=== PATIENT | male | born 1955 | race Caucasian/White ===

== ENCOUNTER 2018-03-01 20:58 | Inpatient (IN) | payer OTHER ==
[~2018-03-01] VITALS: Ht 185.4 cm; Wt 88.4 kg
[2018-03-01 21:32] LABS: BASOPHILS ABSOLUTE AUTO 0.05 K/mm3 (0.00-0.23); BASOPHILS PERCENT AUTO 1 % (0-2); EOSINOPHILS ABSOLUTE AUTO 0.28 K/mm3 (0.00-0.68); EOSINOPHILS PERCENT AUTO 4 % (0-6); Hematocrit 41.4 % (37.0-53.0); Hemoglobin 12.7 g/dL (13.5-17.5); IMMATURE GRAN ABSOLUTE AUTO 0.02 K/mm3 (0.00-0.10); IMMATURE GRAN PERCENT AUTO 0 % (0-1); LYMPHOCYTES ABSOLUTE AUTO 1.93 K/mm3 (0.84-5.20); LYMPHOCYTES PERCENT AUTO 29 % (21-46); MONOCYTES PERCENT AUTO 13 % (4-13); Mean Corpuscular HGB 30.5 pg (26.0-34.0); Mean Corpuscular HGB Conc 30.7 g/dL (31.5-36.5); Mean Corpuscular Volume 99 fL (80-100); Mean Platelet Volume 10.1 fL (9.1-12.4); NEUTROPHILS ABSOLUTE AUTO 3.54 K/mm3 (1.96-9.15); NEUTROPHILS PERCENT AUTO 53 % (41-73); Platelet Count 252 K/mm3 (150-400); RDW Standard Deviation 51.5 fL (35.1-46.3); Red Blood Cell Count 4.17 M/mm3 (4.30-5.90); White Blood Cell Count 6.72 K/mm3 (4.00-11.30)
[2018-03-01 21:53] LABS: Albumin, Blood 3.5 g/dL (3.4-5.0); Albumin/Globulin Ratio 0.9 (0.8-1.8); Bilirubin, Total 0.7 mg/dL (0.1-1.0); Bun/Creatinine Ratio 19.2 (12.0-20.0); Calcium, Blood 8.9 mg/dL (8.5-10.1); Creatinine, Blood 1.46 mg/dL (0.60-1.20); Globulin, Blood 3.8 g/dL (2.2-4.0); Potassium, Blood 4.1 mmol/L (3.5-5.5); Total Protein, Blood 7.3 g/dL (6.4-8.2); Troponin I 0.018 ng/mL (0.000-0.040)
[2018-03-01] MEDS ORDERED: METO50ER PO (21:54)
[2018-03-01] MEDS ORDERED: LOSA50 PO (21:55)
--- NOTE | 2018-03-02 02:00 | NUR ---
RECEIVED HAND OFF FROM MELVIN YODER IN ER USING SBAR. TRANSPORTED TO ROOM VIA STRETCHER. TRANSFERED SELF TO BED WITH STANDBY ASSIST, TOLERATED WELL. AAO X3, MEAD, FOLLOWS ALL COMMANDS. ORIENTED TO ROOM, CALL SYSTEM, AND POC, VOICES UNDERSTANDING. RESPIRATIONS EVEN AND UNLABORED ON ROOM AIR. LUNG SOUNDS DIMINSHED BILATERALLY. ABDOMEN SOFT AND NONDISTEDNED. BOWEL SOUNDS PRESENT IN ALL QUADS. COONTINENT OF BOWEL AND BLADDER, USES BATHROOM. STATES THAT [place] THAT HE TAKES CAUSES CONSTIPATION. RIGHT AC 18G IS PATENT, FLUSHING WITH EASE. STATES THAT HE IS STARVING. GIVEN SANDICHES, CHEESE, SODA, AND WATER. DENIES PAIN, DISCOMFORT, OR FURTHER NEEDS AT THIS TIME. ADMISSION ASSESSMENT IN PROGRESS. SAFETY MEASURES IN PLACE. WILL CONTINUE TO MONITOR.
--- NOTE | 2018-03-02 02:05 | NUR ---
PLACED ON TELE. SHOWING NSP WITH PAC'S, RATE OF 85. WILL CONTINUE TO MONITOR.
[2018-03-02 03:33] LABS: Source, Urine Clean Catch
[2018-03-02 03:35] LABS: Bilirubin, Urine Neg (Neg); Blood, Urine Neg (Neg); Glucose Qualitative, Urine Neg (Neg); Ketones, Urine Neg (Neg); Leukocyte Esterase, Urine 1+ (Neg); Nitrite, Urine Neg (Neg); Protein, Urine Neg (Neg); Urobilinogen, Urine NORM (Normal)
[2018-03-02 03:42] LABS: Appearance, Urine Clear (Clear); Color, Urine Pale Yellow (P-Yellow)
[2018-03-02 03:46] LABS: U Amphetamine Screen DETECTED; U Barbituate Screen Not Detected; U Benzodiazapine Screen Not Detected; U Buprenorphine Screen Not Detected; U Cannabinoids Screen DETECTED; U Cocaine Screen Not Detected; U Methadone Screen Not Detected; U Methamphetamine Screen DETECTED; U Opiates Screen Not Detected; U Oxycodone Screen Not Detected; U Phencyclidine Screen Not Detected; U Propoxyphene Screen Not Detected
[2018-03-02 03:47] LABS: Bacteria Not Seen /hpf; Red Blood Cells, Urine Not Seen /hpf (0-2); Squamous Epithelial Cells Few /hpf (Few); White Blood Cells, Urine Rare /hpf (0-5)
[2018-03-02 05:38] LABS: Hematocrit 41.5 % (37.0-53.0); Hemoglobin 13.3 g/dL (13.5-17.5); Mean Corpuscular HGB 30.4 pg (26.0-34.0); Mean Platelet Volume 10.6 fL (9.1-12.4); Platelet Count 257 K/mm3 (150-400); RDW Standard Deviation 48.6 fL (35.1-46.3); Red Blood Cell Count 4.37 M/mm3 (4.30-5.90); White Blood Cell Count 8.06 K/mm3 (4.00-11.30)
[2018-03-02 05:49] LABS: Mean Corpuscular Volume 95 fL (80-100)
[2018-03-02 06:09] LABS: CPK Creatine Kinase 133 U/L (39-308); Troponin I <0.015 ng/mL (0.000-0.040)
[2018-03-02 06:22] LABS: Albumin, Blood 3.5 g/dL (3.4-5.0); Albumin/Globulin Ratio 0.9 (0.8-1.8); Bilirubin, Total 1.1 mg/dL (0.1-1.0); Bun/Creatinine Ratio 20.3 (12.0-20.0); Calcium, Blood 9.1 mg/dL (8.5-10.1); Creatinine, Blood 1.43 mg/dL (0.60-1.20); Globulin, Blood 3.8 g/dL (2.2-4.0); Potassium, Blood 4.1 mmol/L (3.5-5.5); Total Protein, Blood 7.3 g/dL (6.4-8.2)
--- NOTE | 2018-03-02 07:23 | NUR ---
NO CHANGES SINCE ADMISSION. SAFETY MEASURES IN PLACE. HAND OFF GIVEN TO Shubham DUTTA RN USING SBAR.
--- NOTE | 2018-03-02 12:17 | NUR ---
PT HAVING STUDY IN ROOM.
[2018-03-02 13:36] LABS: CPK Creatine Kinase 104 U/L (39-308); Troponin I <0.015 ng/mL (0.000-0.040)
--- NOTE | 2018-03-02 18:12 | NUR ---
SHIFT SUMMARY PT EATING AND DRINKING. VOIDING. REPORTS UNDERSTANDING OF FLUID RESTRICTION. PT REPORTS "I FEEL MUCH BETTER TODAY THAN YESTERDAY". PT BEEN ASSISTED WITH ADL'S PRN. PT IND IN ROOM. REPORTS HAVING BM TODAY AND VOIDING EASIER TODAY "NOT IN BURSTS LAST TIME".
[2018-03-03 05:35] LABS: BASOPHILS ABSOLUTE AUTO 0.04 K/mm3 (0.00-0.23); BASOPHILS PERCENT AUTO 0 % (0-2); EOSINOPHILS PERCENT AUTO 3 % (0-6); Hematocrit 43.3 % (37.0-53.0); Hemoglobin 13.9 g/dL (13.5-17.5); IMMATURE GRAN ABSOLUTE AUTO 0.03 K/mm3 (0.00-0.10); IMMATURE GRAN PERCENT AUTO 0 % (0-1); LYMPHOCYTES PERCENT AUTO 17 % (21-46); MONOCYTES ABSOLUTE AUTO 1.17 K/mm3 (0.16-1.47); MONOCYTES PERCENT AUTO 11 % (4-13); Mean Corpuscular HGB 30.3 pg (26.0-34.0); Mean Corpuscular HGB Conc 32.1 g/dL (31.5-36.5); Mean Corpuscular Volume 95 fL (80-100); Mean Platelet Volume 10.2 fL (9.1-12.4); NEUTROPHILS ABSOLUTE AUTO 7.69 K/mm3 (1.96-9.15); NEUTROPHILS PERCENT AUTO 69 % (41-73); Platelet Count 255 K/mm3 (150-400); RDW Coefficient Variation 14.1 % (11.7-14.2); RDW Standard Deviation 48.8 fL (35.1-46.3); Red Blood Cell Count 4.58 M/mm3 (4.30-5.90); White Blood Cell Count 11.13 K/mm3 (4.00-11.30)
[2018-03-03 05:53] LABS: Anion Gap 11 mmol/L (6-16); Blood Urea Nitrogen 23 mg/dL (8-24); Bun/Creatinine Ratio 19.3 (12.0-20.0); CO2, Blood 22 mmol/L (21-32); Chloride, Blood 104 mmol/L (98-108); Creatinine, Blood 1.19 mg/dL (0.60-1.20); Glomerular Filtration Rate >60 (60-); Glucose, Blood 151 mg/dL (70-99); Magnesium, Blood 1.6 mg/dL (1.6-2.4); Potassium, Blood 3.8 mmol/L (3.5-5.5); Sodium, Blood 137 mmol/L (136-145)
--- NOTE | 2018-03-03 14:00 | NUR ---
PT MOST RECENT/PREVIOUS EKG AND ECHO WERE REQUESTED FROM [facility], .
--- NOTE | 2018-03-03 16:17 | NUR ---
REQUESTED PATIENT PERMISSION FOR CARE ON 03/03/18 FOR CLINICAL DAY 03/04/18 1400 HOURS, PATIENT GAVE PERMISSION TO ASSIST WITH CARE.
--- NOTE | 2018-03-03 17:03 | NUR ---
SHIFT SUMMARY PT A&OX4, VSS, TELE SR PACS @84. AMB INDEPENDENT IN ROOM. VOIDING WELL. NATALI PO, DENIES N&V. DENIES PAIN, CP, SOB. VERBALIZES UNDERSTANDING OF FLUID RESTRICTION. WILL CTM & TX PER EMAR UNTIL REPORT GIVEN TO ONCOMING NOC RN.
--- NOTE | 2018-03-03 18:44 | NUR ---
PREVIOUS ECHO FROM [facility] IS ON PHYSICAL CHART. EKG HAS BEEN REQUESTED, STILL AWAITING IT TO BE FAXED TO US.
--- NOTE | 2018-03-03 18:46 | NUR ---
TELEPHONE CALL TO HOSPITALIST : PREVIOUS ECHO ON PHYSICAL CHART.
[2018-03-04 05:51] LABS: Anion Gap 9 mmol/L (6-16); Blood Urea Nitrogen 23 mg/dL (8-24); Bun/Creatinine Ratio 18.5 (12.0-20.0); CO2, Blood 25 mmol/L (21-32); Calcium, Blood 8.8 mg/dL (8.5-10.1); Chloride, Blood 104 mmol/L (98-108); Creatinine, Blood 1.24 mg/dL (0.60-1.20); Glomerular Filtration Rate >60 (60-); Glucose, Blood 164 mg/dL (70-99); Potassium, Blood 3.8 mmol/L (3.5-5.5); Sodium, Blood 138 mmol/L (136-145)
--- NOTE | 2018-03-04 08:41 | NUR ---
SHIFT SUMMARY PT A&O X4 T/O SHIFT. PT INDEPENDENT IN ROOM. LS CLEAR BILAT, RA, DENIES SOB. NO EDEMA NOTED; FLUID RESTRICTION PER ORDERS. TELEMETRY IN PLACE; SR WITH PAC'S PER FOUNTAIN JERK. PERMISSION TO REMOVE TELE WHILE SHOWERING FROM DR. MARTINEZ VIA PHONE APPROX. [id number]. PT SHOWERED. CALL LIGHT IN REACH. REPORT GIVEN TO DAY SHIFT RN.
--- NOTE | 2018-03-04 10:38 | NUR ---
ECHO RESULTS REQUESTED FROM PT'S LAST VISIT TO [facility] VIA FAX.
[2018-03-05 05:43] LABS: International Normalized Ratio 1.11; Prothrombin Time Results 11.4 Sec (9.7-11.5)
[2018-03-05 05:53] LABS: Bun/Creatinine Ratio 18.8 (12.0-20.0); Creatinine, Blood 1.38 mg/dL (0.60-1.20); Potassium, Blood 4.1 mmol/L (3.5-5.5)
--- NOTE | 2018-03-05 07:07 | NUR ---
SUMMARY: ADMIT DAY 3 SOB ON HOSPITALIST SERVICE WITH CARDIOLOGY CONSULT. VSS, AFEBRILE, SHOWERED AND MAINTAINED NPO STATUS AFTER MIDNIGHT IN ANTICIPATION OF ANGIOGRAM LATER THIS DAY.
--- NOTE | 2018-03-05 12:13 | NUR ---
PT EDUCATED THAT ANGIO WAS POSTPONED UNTIL AROUND 3PM. WILL CONTINUE TO MONITOR.
--- NOTE | 2018-03-05 14:51 | NUR ---
PT TO THE HEART [facility]ENTER FOR ANGIOGRAM.
--- NOTE | 2018-03-05 16:55 | NUR ---
Telephone report from Olena Hobson RN at this time. The pt arrived from the heart center at 1630. Right radial site is without bleeding, swelling, hematoma, ecchymosis, and the TR band is in place. Fingers of the right hand are pink and warm. Cap refill is 3 seconds. Pt denies any pain or discomfort in the right arm. White immobilizer board is in place, and the pt was instructed not to use the right arm to minimize risk of bleeding.
--- NOTE | 2018-03-05 16:59 | NUR ---
REPORT CALLED TO PATTI IN PCU.
--- NOTE | 2018-03-05 19:17 | NUR ---
1800 Slowly deflated TR band by 2 cc, then after several minutes, deflated again another 2 cc. Had bleeding externally, so 2 cc reinflated, but still oozing so another 22 inflated.
--- NOTE | 2018-03-05 19:18 | NUR ---
1845 AFter 30 minutes following bleeding and reinflation of the TR band, 2 cc of air were removed from the TR band, without any bleeding or swelling or bruising noted. The pt states relief from some tingling of the arm which he was starting to have. No other complaints of pain or discomfort.
--- NOTE | 2018-03-06 03:47 | NUR ---
PHONE INCEDENT APPROX 0340 OUTSIDE CALLER IDENTIFIED HIMSELF PATIENTS BROTHER AND WANTED INFORMATION. CALLER WAS INFORMED THAT SIGNED CONSENT TO GIVE OUT INFORMATION WAS NOT COMPLETED AND STAFF COULD NOT GIVE OUT PATIENT INFORMATION, CALLER ALSO NOTIFIED THAT STAFF COULD ASK PATIENT FOR PERMISSION OR TRANSFER CALL TO ROOM. CALLER BEGAN TO RAISE HIS VOICE AND STATE THAT STAFF WAS USELESS AND THAT PATIENTS CHILDREN HAD A RIGHT TO KNOW PATIENTS CONDITION. THIS NURSE APOLOGISED SEVERAL TIMES FOR INCONVENIENCE AND EXPLAINED SEVERAL TIMES THAT IT WAS AGAINST THE LAW FOR STAFF TO GIVE OUT PATIENT INFORMATION WITHOUT PATIENT CONSENT (WHICH WAS NOT IN WRITTING). CALLER AGAIN INFORMED THAT STAFF COULD ASK FOR PERMISSION FROM PATIENT AND CALLER REQUESTED TO TALK DIRECTLY TO HIS BROTHER (VERY LOUDLY). STAFF ASKED PATIENT IF HE WANTED TO TALK TO HIS BROTHER AND PATIENT STATED, "NO I DONT, IM TOO TIRED BUT YOU CAN TELL HIM ANYTHING HE WANTS TO KNOW". CALLER NOTIFIED THAT PATIENT WANTED TO SLEEP RATHER THAN TALK ON THE PHONE BUT PATIENT HAD GIVEN PERMISSION TO ANSWER BROTHERS QUESTIONS/GIVE INFORMATION . CALLER BEGAN TO YELL AT STAFF OVER THE PHONE AGAIN EVEN THOUGH HE WAS NOTIFIED THAT WE HAD PERMISSION TO ANSWER ALL OF HIS QUESTIONS. CALLER YELLING AT NURSE SAYING THAT HE HAD BEEN 'RECIEVING INFORMATION FOR 4 DAYS', 'WHATS YOUR PROBLEM'. CALL ENDED
--- NOTE | 2018-03-06 04:10 | NUR ---
SHIFT SUMMARY: PATIENT TR BAND FULLY RECOVERED: NO BLEEDING, HEMATOMA, SENSATION LOSS, LOSS OF STRENGTH NOTED. GOOD CAPILLARY REFILL, WRIST STABILIZER IN PLACE, VSS, CALL LIGHT WITHIN REACH, BED LOW AND LOCKED.
[2018-03-06 04:14] LABS: Albumin, Blood 3.2 g/dL (3.4-5.0); Anion Gap 6 mmol/L (6-16); Blood Urea Nitrogen 23 mg/dL (8-24); Bun/Creatinine Ratio 19.7 (12.0-20.0); CO2, Blood 24 mmol/L (21-32); Calcium, Blood 8.3 mg/dL (8.5-10.1); Chloride, Blood 107 mmol/L (98-108); Creatinine, Blood 1.17 mg/dL (0.60-1.20); Glomerular Filtration Rate >60 (60-); Glucose, Blood 140 mg/dL (70-99); Magnesium, Blood 1.8 mg/dL (1.6-2.4); Phosphorus, Blood 3.4 mg/dL (2.5-4.9); Potassium, Blood 4.2 mmol/L (3.5-5.5); Sodium, Blood 137 mmol/L (136-145)
--- NOTE | 2018-03-06 08:15 | NUR ---
INITIAL ASSESSMENT: Pt resting in bed. LS clear. BT positive. Pulses palp. HR reg. Pt denies chest pain or SOB. States that he is feeling good and would like to go home. VSS. R wrist with imobilzier in place. Radial access site to R wrist with no bleeding, swelling, hematoma or oozing at site. Pt Denies pain. Call light in reach. Will monitor.
[2018-03-06] MEDS ORDERED: SPIR25 PO (11:05)
[2018-03-06] MEDS ORDERED: TORSE20 PO (11:06)
--- NOTE | 2018-03-06 11:45 | NUR ---
Discharge: Pt was given printend and written discharge instructions. Verbalzied understanding, denies questions. RX called to [facility]. IV discontinued, cath intact. Pt states he will eat dinner then wait for his brother to pick him up. will monitor.
--- NOTE | 2018-03-06 12:30 | NUR ---
Pt ambulated out with his brother. Stable at time of discharge.
== END 2018-03-06 12:29 | disposition home or self-care (01) | DRG 286 ==
LOC: ER 20:58 → SURS 03-02 00:19 → PCU 03-05 16:25
PROVIDERS: Emergency Medicine; Internal Medicine; Internal Medicine Cardiovascular Disease; ADMIT Internal Medicine
PROC: 3E02340 Introduction of Influenza Vaccine into Muscle, Percutaneous Approach (ICD-10-PCS; 2018-03-02)
PROC: B2111ZZ Fluoroscopy of Multiple Coronary Arteries using Low Osmolar Contrast (ICD-10-PCS; principal; 2018-03-05)
PROC: 4A023N7 Measurement of Cardiac Sampling and Pressure, Left Heart, Percutaneous Approach (ICD-10-PCS; 2018-03-05)
DX: I13.0 Hypertensive heart and chronic kidney disease with heart failure and stage 1 through stage 4 chronic kidney disease, or unspecified chronic kidney disease (principal); I50.23 Acute on chronic systolic (congestive) heart failure; N17.9 Acute kidney failure, unspecified; I47.2 Ventricular tachycardia; I42.7 Cardiomyopathy due to drug and external agent; E11.22 Type 2 diabetes mellitus with diabetic chronic kidney disease; I27.20 Pulmonary hypertension, unspecified; Z23 Encounter for immunization; E83.42 Hypomagnesemia; I36.1 Nonrheumatic tricuspid (valve) insufficiency; N18.3 Chronic kidney disease, stage 3 (moderate); T43.625A Adverse effect of amphetamines, initial encounter; I25.10 Atherosclerotic heart disease of native coronary artery without angina pectoris; I25.5 Ischemic cardiomyopathy; F15.10 Other stimulant abuse, uncomplicated; I34.0 Nonrheumatic mitral (valve) insufficiency; E78.5 Hyperlipidemia, unspecified; I25.2 Old myocardial infarction; Z79.899 Other long term (current) drug therapy; Z79.82 Long term (current) use of aspirin
CPT/HCPCS: 36415; 71045; 80048; 80053; 80069; 81001; 82550; 83690; 83735; 83880; 84484; 85025; 85027; 85379; 85610; 86850; 86900; 86901; 87086; 90686; 93005; 93010; 93306; 93458; 96374; 99152; 99153; 99285-25; C1769; C1894; J0690; J1644; J1650; J1940; J2250; J3010; J3475; J7030; Q9967

== ENCOUNTER 2018-07-21 09:36 | Emergency (ER) | payer OTHER ==
[~2018-07-21] VITALS: Ht 185.4 cm; Wt 87.5 kg
[~2018-07-21 09:36] MED LIST: LOSA50 PO; METO50ER PO; SPIR25 PO; TORSE20 PO
[2018-07-21 10:24] LABS: BASOPHILS ABSOLUTE AUTO 0.03 K/mm3 (0.00-0.23); BASOPHILS PERCENT AUTO 0 % (0-2); EOSINOPHILS PERCENT AUTO 4 % (0-6); Hematocrit 35.3 % (37.0-53.0); Hemoglobin 11.1 g/dL (13.5-17.5); IMMATURE GRAN ABSOLUTE AUTO 0.04 K/mm3 (0.00-0.10); IMMATURE GRAN PERCENT AUTO 1 % (0-1); LYMPHOCYTES ABSOLUTE AUTO 1.52 K/mm3 (0.84-5.20); LYMPHOCYTES PERCENT AUTO 19 % (21-46); MONOCYTES ABSOLUTE AUTO 0.85 K/mm3 (0.16-1.47); MONOCYTES PERCENT AUTO 11 % (4-13); Mean Corpuscular HGB Conc 31.4 g/dL (31.5-36.5); Mean Corpuscular Volume 102 fL (80-100); Mean Platelet Volume 10.2 fL (9.1-12.4); NEUTROPHILS ABSOLUTE AUTO 5.33 K/mm3 (1.96-9.15); NEUTROPHILS PERCENT AUTO 66 % (41-73); Platelet Count 224 K/mm3 (150-400); RDW Coefficient Variation 14.5 % (11.7-14.2); RDW Standard Deviation 53.9 fL (35.1-46.3); Red Blood Cell Count 3.47 M/mm3 (4.30-5.90); White Blood Cell Count 8.07 K/mm3 (4.00-11.30)
[2018-07-21 10:37] LABS: Alanine Aminotransfer (ALT/SGP 103 U/L (12-78); Albumin, Blood 3.5 g/dL (3.4-5.0); Alk Phos 104 U/L (50-136); Anion Gap 4 mmol/L (6-16); Aspartate Aminotrans (AST/SGOT 43 U/L (12-37); Bilirubin, Total 0.9 mg/dL (0.1-1.0); Blood Urea Nitrogen 19 mg/dL (8-24); Bun/Creatinine Ratio 15.4 (12.0-20.0); CO2, Blood 24 mmol/L (21-32); Calcium, Blood 8.8 mg/dL (8.5-10.1); Chloride, Blood 111 mmol/L (98-108); Creatinine, Blood 1.23 mg/dL (0.60-1.20); Globulin, Blood 3.4 g/dL (2.2-4.0); Glomerular Filtration Rate >60 (60-); Glucose, Blood 168 mg/dL (70-99); Potassium, Blood 4.2 mmol/L (3.5-5.5); Sodium, Blood 139 mmol/L (136-145); Total Protein, Blood 6.9 g/dL (6.4-8.2); Troponin I 0.037 ng/mL (0.000-0.040)
[2018-07-21 10:52] LABS: Source, Urine Clean Catch
[2018-07-21 10:58] LABS: Bilirubin, Urine Neg (Neg); Blood, Urine Neg (Neg); Glucose Qualitative, Urine Neg (Neg); Ketones, Urine Neg (Neg); Leukocyte Esterase, Urine Neg (Neg); Nitrite, Urine Neg (Neg); Protein, Urine 1+ (Neg); Specific Gravity, Urine 1.015 (1.003-1.022); Urobilinogen, Urine NORM (Normal)
[2018-07-21 11:00] LABS: Appearance, Urine Clear (Clear); Color, Urine Yellow (P-Yellow)
== END 2018-07-21 14:45 | disposition home or self-care (01) ==
LOC: ER 09:36
PROVIDERS: Emergency Medicine
DX: I11.0 Hypertensive heart disease with heart failure (principal); I50.82 Biventricular heart failure; I50.21 Acute systolic (congestive) heart failure; I25.2 Old myocardial infarction; I25.10 Atherosclerotic heart disease of native coronary artery without angina pectoris; Z87.891 Personal history of nicotine dependence; Z79.899 Other long term (current) drug therapy
CPT/HCPCS: 36415; 71046; 80053; 83690; 83880; 84484; 85025; 93005; 93010; 96374; 99285-25; J1940

== ENCOUNTER 2018-10-09 22:33 | Observation (INO) | payer OTHER ==
[~2018-10-09] VITALS: Ht 188 cm; Wt 89.2 kg
[2018-10-09 23:18] LABS: BASOPHILS ABSOLUTE AUTO 0.03 K/mm3 (0.00-0.23); BASOPHILS PERCENT AUTO 0 % (0-2); EOSINOPHILS ABSOLUTE AUTO 0.37 K/mm3 (0.00-0.68); EOSINOPHILS PERCENT AUTO 4 % (0-6); Hematocrit 37.2 % (37.0-53.0); Hemoglobin 11.9 g/dL (13.5-17.5); IMMATURE GRAN ABSOLUTE AUTO 0.03 K/mm3 (0.00-0.10); IMMATURE GRAN PERCENT AUTO 0 % (0-1); LYMPHOCYTES PERCENT AUTO 17 % (21-46); MONOCYTES ABSOLUTE AUTO 0.97 K/mm3 (0.16-1.47); MONOCYTES PERCENT AUTO 9 % (4-13); Mean Corpuscular HGB 31.2 pg (26.0-34.0); Mean Corpuscular Volume 97 fL (80-100); NEUTROPHILS PERCENT AUTO 70 % (41-73); Platelet Count 228 K/mm3 (150-400); RDW Coefficient Variation 14.6 % (11.7-14.2); RDW Standard Deviation 52.4 fL (35.1-46.3); Red Blood Cell Count 3.82 M/mm3 (4.30-5.90)
[2018-10-09 23:44] LABS: Alanine Aminotransfer (ALT/SGP 133 U/L (12-78); Albumin, Blood 3.4 g/dL (3.4-5.0); Alk Phos 113 U/L (50-136); Anion Gap 7 mmol/L (6-16); Aspartate Aminotrans (AST/SGOT 69 U/L (12-37); Bilirubin, Total 1.5 mg/dL (0.1-1.0); Blood Urea Nitrogen 20 mg/dL (8-24); Bun/Creatinine Ratio 16.1 (12.0-20.0); CO2, Blood 22 mmol/L (21-32); Calcium, Blood 8.8 mg/dL (8.5-10.1); Chloride, Blood 112 mmol/L (98-108); Creatinine, Blood 1.24 mg/dL (0.60-1.20); Globulin, Blood 3.5 g/dL (2.2-4.0); Glomerular Filtration Rate >60 (60-); Glucose, Blood 149 mg/dL (70-99); Potassium, Blood 4.1 mmol/L (3.5-5.5); Sodium, Blood 141 mmol/L (136-145); Total Protein, Blood 6.9 g/dL (6.4-8.2); Troponin I 0.016 ng/mL (0.000-0.040)
--- NOTE | 2018-10-10 05:40 | NUR ---
SHIFT SUMMARY: YAMILEX ARRIVED TO THE UNIT VIA GURNEY. TRANSFERRED SELF TO THE BED WITH NO PROBLEMS. YAMILEX CAME TO THE ER TODAY DUE TO CHEST PAIN, SOB. HAS HISTORY OF CHF AND HAS NOT TAKEN HIS MEDS FOR 2 WEEKS, SOMETHING TO DO WITH THE PHARMACY NOT FILLING THEM. HE IS AOX4, PLEASANT AND COOPERATIVE. SETTLED HIM INTO THE ROOM AND COMPLETED ADMISSION. LOVONOX WAS GIVEN AND SCIENTIST PLACED TELEMETRY. HE DENIED ANY CHEST PAIN AT THIS TIME, NO SOB,. STILL URINATING OFF AND ON DUE TO BUMEX GIVEN IN ER. DENIED ANY OTHER CONCERNS OR PROBLEMS. RESTED THE REST OF THE NIGHT. NO ACUTE CHANGES HAPPENED THIS SHIFT. WILL REPORT TO DAY SHIFT RN.
[2018-10-10 07:16] LABS: Hematocrit 38.7 % (37.0-53.0); Hemoglobin 12.7 g/dL (13.5-17.5); Mean Corpuscular HGB 30.5 pg (26.0-34.0); Mean Corpuscular HGB Conc 32.8 g/dL (31.5-36.5); Mean Platelet Volume 9.9 fL (9.1-12.4); Platelet Count 258 K/mm3 (150-400); RDW Coefficient Variation 14.5 % (11.7-14.2); RDW Standard Deviation 49.1 fL (35.1-46.3); Red Blood Cell Count 4.17 M/mm3 (4.30-5.90); White Blood Cell Count 9.08 K/mm3 (4.00-11.30)
[2018-10-10 07:20] LABS: Mean Corpuscular Volume 93 fL (80-100)
[2018-10-10 07:41] LABS: Alanine Aminotransfer (ALT/SGP 143 U/L (12-78); Albumin, Blood 3.6 g/dL (3.4-5.0); Alk Phos 120 U/L (50-136); Anion Gap 6 mmol/L (6-16); Aspartate Aminotrans (AST/SGOT 72 U/L (12-37); Blood Urea Nitrogen 20 mg/dL (8-24); Bun/Creatinine Ratio 16.9 (12.0-20.0); CO2, Blood 24 mmol/L (21-32); Calcium, Blood 9.2 mg/dL (8.5-10.1); Chloride, Blood 108 mmol/L (98-108); Creatinine, Blood 1.18 mg/dL (0.60-1.20); Globulin, Blood 3.6 g/dL (2.2-4.0); Glomerular Filtration Rate >60 (60-); Glucose, Blood 139 mg/dL (70-99); Potassium, Blood 3.7 mmol/L (3.5-5.5); Sodium, Blood 138 mmol/L (136-145); Total Protein, Blood 7.2 g/dL (6.4-8.2)
[2018-10-10 07:43] LABS: CPK Creatine Kinase 83 U/L (39-308); Troponin I <0.015 ng/mL (0.000-0.040)
--- NOTE | 2018-10-10 11:38 | NUR ---
PATIENT DISCHARGED WITH BROTHER. FOLLOW UP WITH PCP TO BE ESTABLISHED BY DISCHARGE PLANNERS. DISCHARGE PLANNING TO CALL PATIENT FOR FOLLOW UP TIME. NOTIFIED DISCHARGE PLANNING TO CALL HIS BROTHER WITH THE APPOINTMENT TIME.
== END 2018-10-10 11:35 | disposition home or self-care (01) ==
LOC: ER 22:33 → MEDS 22:34 → ENPENDDIS 10-10 10:00 → MEDS 10-10 11:35
PROVIDERS: Emergency Medicine; ADMIT Internal Medicine
DX: I11.0 Hypertensive heart disease with heart failure (principal); I50.43 Acute on chronic combined systolic (congestive) and diastolic (congestive) heart failure; I25.2 Old myocardial infarction; R74.0 Nonspecific elevation of levels of transaminase and lactic acid dehydrogenase [LDH]; E11.9 Type 2 diabetes mellitus without complications; I34.1 Nonrheumatic mitral (valve) prolapse; Z91.14 Patient's other noncompliance with medication regimen; Z79.899 Other long term (current) drug therapy; Z88.8 Allergy status to other drugs, medicaments and biological substances
CPT/HCPCS: 36415; 71046; 80053; 82550; 83880; 84484; 85025; 85027; 93005; 93010; 96372; 96374; 96376; 99285-25; G0378; J1650

== ENCOUNTER 2019-12-12 05:41 | Emergency (ER) | payer MEDICARE ==
[~2019-12-12] VITALS: Ht 188 cm; Wt 90.7 kg
[2019-12-12 06:21] LABS: BASOPHILS ABSOLUTE AUTO 0.03 K/mm3 (0.00-0.23); BASOPHILS PERCENT AUTO 0 % (0-2); EOSINOPHILS ABSOLUTE AUTO 0.05 K/mm3 (0.00-0.68); EOSINOPHILS PERCENT AUTO 1 % (0-6); Hematocrit 46.7 % (37.0-53.0); Hemoglobin 16.6 g/dL (13.5-17.5); IMMATURE GRAN ABSOLUTE AUTO 0.02 K/mm3 (0.00-0.10); IMMATURE GRAN PERCENT AUTO 0 % (0-1); LYMPHOCYTES PERCENT AUTO 22 % (21-46); MONOCYTES ABSOLUTE AUTO 0.56 K/mm3 (0.16-1.47); MONOCYTES PERCENT AUTO 7 % (4-13); Mean Corpuscular HGB 32.2 pg (26.0-34.0); Mean Corpuscular HGB Conc 35.5 g/dL (31.5-36.5); Mean Corpuscular Volume 91 fL (80-100); Mean Platelet Volume 9.3 fL (9.1-12.4); NEUTROPHILS ABSOLUTE AUTO 5.37 K/mm3 (1.96-9.15); NEUTROPHILS PERCENT AUTO 70 % (41-73); Platelet Count 322 K/mm3 (150-400); RDW Coefficient Variation 12.4 % (11.7-14.2); RDW Standard Deviation 41.1 fL (35.1-46.3); Red Blood Cell Count 5.16 M/mm3 (4.30-5.90); White Blood Cell Count 7.73 K/mm3 (4.00-11.30)
[2019-12-12 06:30] LABS: Alanine Aminotransfer (ALT/SGP 32 U/L (12-78); Albumin, Blood 4.3 g/dL (3.4-5.0); Albumin/Globulin Ratio 1.1 (0.8-1.8); Anion Gap 11 mmol/L (6-16); Aspartate Aminotrans (AST/SGOT 26 U/L (12-37); Bilirubin, Total 0.6 mg/dL (0.1-1.0); Blood Urea Nitrogen 31 mg/dL (8-24); Bun/Creatinine Ratio 26.3 (12.0-20.0); CO2, Blood 21 mmol/L (21-32); Calcium, Blood 8.9 mg/dL (8.5-10.1); Chloride, Blood 99 mmol/L (98-108); Creatinine, Blood 1.18 mg/dL (0.60-1.20); Ethanol (Alcohol), Blood, Med 96 mg/dL; Globulin, Blood 3.8 g/dL (2.2-4.0); Glomerular Filtration Rate >60 (60-); Glucose, Blood 142 mg/dL (70-99); Potassium, Blood 3.8 mmol/L (3.5-5.5); Sodium, Blood 131 mmol/L (136-145); Total Protein, Blood 8.1 g/dL (6.4-8.2)
[2019-12-12 06:33] LABS: Alk Phos 82 U/L (50-136); Troponin I <0.015 ng/mL (0.000-0.040)
[2019-12-12 07:26] LABS: U Cannabinoids Screen DETECTED
[2019-12-12 07:27] LABS: U Amphetamine Screen Not Detected; U Barbituate Screen Not Detected; U Benzodiazapine Screen Not Detected; U Buprenorphine Screen Not Detected; U Cocaine Screen Not Detected; U Methadone Screen Not Detected; U Methamphetamine Screen Not Detected; U Opiates Screen Not Detected; U Oxycodone Screen Not Detected; U Phencyclidine Screen Not Detected; U Propoxyphene Screen Not Detected
[2019-12-12] MEDS ORDERED: PEPCID40 MG PO (09:34)
[2019-12-12] MEDS ORDERED: ONDA4ODT SL (09:34)
== END 2019-12-12 10:29 | disposition home or self-care (01) ==
LOC: ER 05:41
PROVIDERS: Emergency Medicine
DX: R10.13 Epigastric pain (principal); I42.9 Cardiomyopathy, unspecified; R11.2 Nausea with vomiting, unspecified; I25.2 Old myocardial infarction; I11.0 Hypertensive heart disease with heart failure; I50.42 Chronic combined systolic (congestive) and diastolic (congestive) heart failure; Z88.8 Allergy status to other drugs, medicaments and biological substances; Z79.899 Other long term (current) drug therapy
CPT/HCPCS: 36415; 71045; 80053; 83690; 83880; 84484; 85025; 93005; 93010; 96374; 96375; 99285-25; C9113; G0480; J1170; J2060; J2405

== ENCOUNTER 2023-09-22 15:00 | Emergency (ER) | payer MEDICARE ==
[~2023-09-22] VITALS: Ht 185.4 cm; Wt 90.7 kg
[~2023-09-22 15:00] MED LIST changes: +ONDA4ODT SL; +PEPCID40 MG PO
[2023-09-22 15:20] LABS: BASOPHILS ABSOLUTE AUTO 0.04 K/mm3 (0.00-0.23); BASOPHILS PERCENT AUTO 1 % (0-2); EOSINOPHILS ABSOLUTE AUTO 0.05 K/mm3 (0.00-0.68); EOSINOPHILS PERCENT AUTO 1 % (0-6); Hematocrit 42.8 % (37.0-53.0); Hemoglobin 15.1 g/dL (13.5-17.5); IMMATURE GRAN ABSOLUTE AUTO 0.03 K/mm3 (0.00-0.10); IMMATURE GRAN PERCENT AUTO 0 % (0-1); LYMPHOCYTES ABSOLUTE AUTO 2.91 K/mm3 (0.84-5.20); LYMPHOCYTES PERCENT AUTO 34 % (21-46); MONOCYTES ABSOLUTE AUTO 0.94 K/mm3 (0.16-1.47); MONOCYTES PERCENT AUTO 11 % (4-13); Mean Corpuscular HGB 33.8 pg (26.0-34.0); Mean Corpuscular HGB Conc 35.3 g/dL (31.5-36.5); Mean Corpuscular Volume 96 fL (80-100); Mean Platelet Volume 9.7 fL (9.1-12.4); NEUTROPHILS ABSOLUTE AUTO 4.62 K/mm3 (1.96-9.15); NEUTROPHILS PERCENT AUTO 54 % (41-73); Platelet Count 248 K/mm3 (150-400); RDW Coefficient Variation 12.5 % (11.7-14.2); RDW Standard Deviation 43.6 fL (35.1-46.3); Red Blood Cell Count 4.47 M/mm3 (4.30-5.90); White Blood Cell Count 8.59 K/mm3 (4.00-11.30)
[2023-09-22 15:57] LABS: Magnesium, Blood 1.9 mg/dL (1.6-2.4)
[2023-09-22 16:01] LABS: Albumin, Blood 3.3 g/dL (3.4-5.0); Albumin/Globulin Ratio 0.9 (0.8-1.8); Bilirubin, Total 0.6 mg/dL (0.1-1.0); Bun/Creatinine Ratio 7.3 (12.0-20.0); Calcium, Blood 8.5 mg/dL (8.5-10.1); Creatinine, Blood 1.37 mg/dL (0.60-1.20); Globulin, Blood 3.7 g/dL (2.2-4.0); Potassium, Blood 3.5 mmol/L (3.5-5.5); Thyroid Stimulating Hormone 6.9 uIU/mL (0.360-4.800)
[2023-09-22] MEDS ORDERED: NS 1,000 ML IV SCH (17:15)
[2023-09-22 17:44] LABS: pH Blood Venous 7.38 (7.34-7.37)
[2023-09-22 17:45] LABS: Base Excess Venous 1.8 mmol/L; Bicarbonate Venous 24.1 mmol/L (24.0-30.0); PCO2 Venous 45.7 mmHg (38-42)
[2023-09-22] MEDS ORDERED: METF500 PO (19:29)
[2023-09-22 19:45] VITALS: BP 140/91
== END 2023-09-22 20:06 | disposition home or self-care (01) ==
LOC: ER 15:00
PROVIDERS: Student in an Organized Health Care Education/Training Program
DX: S06.9X9A Unspecified intracranial injury with loss of consciousness of unspecified duration, initial encounter (principal); S00.01XA Abrasion of scalp, initial encounter; E11.65 Type 2 diabetes mellitus with hyperglycemia; I11.9 Hypertensive heart disease without heart failure; I50.42 Chronic combined systolic (congestive) and diastolic (congestive) heart failure; I25.2 Old myocardial infarction; Z87.891 Personal history of nicotine dependence; Z79.899 Other long term (current) drug therapy; Z88.8 Allergy status to other drugs, medicaments and biological substances
CPT/HCPCS: 70450; 70496; 70498; 72125; 80053; 82803; 83735; 84439; 84443; 84484; 85025; 93005; 93010; 99285-25; Q9967